=== PATIENT | female | born 1965 | race American Indian/Alaskan Native ===

== ENCOUNTER 2019-08-22 02:29 | Emergency (ER) | payer MEDICARE, MEDICAID ==
[~2019-08-22] VITALS: Ht 162.6 cm; Wt 35.1 kg
[~2019-08-22 02:29] MED LIST: ALB0.5UD INH; ALBU6.7H3 INH; GABA300C PO; HYDR-4353 PO; HYDR12.522 PO; HYDROXYCHLORQUINE PO; NIFE30TA8 PO
[2019-08-22] MEDS ORDERED: NEOM28.37 TOP (02:46)
[2019-08-22] MEDS ORDERED: neomy sulf/bacitrac zn/polymixin b oint 14.2 gm tube TP STA (02:46)
[2019-08-22] MEDS ORDERED: TETanus/Pertussis (Acell)/Diphther VAC/PF (Tdap-Adult) 0.5ml syringe IMVAC ONE (02:50)
[2019-08-22 03:21] VITALS: BP 155/88
== END 2019-08-22 03:25 | disposition home or self-care (01) ==
LOC: ER 02:30
DX: T23.232A Burn of second degree of multiple left fingers (nail), not including thumb, initial encounter (principal); I10 Essential (primary) hypertension; J45.909 Unspecified asthma, uncomplicated; M06.9 Rheumatoid arthritis, unspecified; F17.200 Nicotine dependence, unspecified, uncomplicated; Z90.49 Acquired absence of other specified parts of digestive tract; Z90.710 Acquired absence of both cervix and uterus; Z98.890 Other specified postprocedural states; Z88.1 Allergy status to other antibiotic agents; Z88.0 Allergy status to penicillin; Z88.6 Allergy status to analgesic agent; Z79.2 Long term (current) use of antibiotics; Z79.899 Other long term (current) drug therapy; X10.2XXA Contact with fats and cooking oils, initial encounter; Y93.89 Activity, other specified; Y92.89 Other specified places as the place of occurrence of the external cause; Y99.8 Other external cause status
CPT/HCPCS: 90471; 90715; 99282; 99283

== ENCOUNTER 2022-02-04 14:53 | Emergency (ER) | payer MEDICARE, MEDICAID ==
[~2022-02-04] VITALS: Ht 162.6 cm; Wt 79.5 kg
[~2022-02-04 14:53] MED LIST changes: +NEOM28.37 TOP
[2022-02-04 15:17] VITALS: BP 124/86
[2022-02-04 21:15] LABS: CLARITY,URINE CLEAR (Clear); GLUCOSE, URINE NEGATIVE (Neg); KETONES,URINE NEGATIVE (Neg); LEUKOCYTE ESTERASE ,URINE NEGATIVE (Neg); NITRITES, URINE NEGATIVE (Neg); OCCULT BLOOD,URINE NEGATIVE (Neg); PH,URINE 5.5 (4.8-8.0); PROTEIN,URINE NEGATIVE (Neg); UROBILINOGEN,URINE 0.2 E.U/dL (0.2-1.0)
[2022-02-04 21:16] LABS: COLOR,URINE Straw (Yellow); UA COLLECTION TYPE CLN CATCH MIDSTREAM
[2022-02-08] MEDS ORDERED: PANT20TA18 (10:44)
[2022-02-08] MEDS ORDERED: MIRA50TA PO (10:44)
[2022-02-08] MEDS ORDERED: TIZA4CAP PO (10:44)
[2022-02-08] MEDS ORDERED: SENN-137 PO (10:44)
[2022-02-08] MEDS ORDERED: ATOR10TA70 PO (10:44)
[2022-02-08] MEDS ORDERED: CHOL500049 PO (10:44)
[2022-02-08] MEDS ORDERED: DIAZ5TAB22 PO (10:44)
[2022-02-08] MEDS ORDERED: ASPI-1265 PO (10:44)
[2022-02-08] MEDS ORDERED: MORP60TA77 PO (10:44)
[2022-02-08] MEDS ORDERED: PRED5TAB PO (10:44)
[2022-02-08] MEDS ORDERED: DIME240C2 PO (10:44)
[2022-02-08] MEDS ORDERED: DULO30CA52 PO (10:44)
== END 2022-02-04 21:23 | disposition left against medical advice (07) ==
LOC: ER 14:54
DX: M25.551 Pain in right hip (principal); M79.641 Pain in right hand; I10 Essential (primary) hypertension; J45.909 Unspecified asthma, uncomplicated; M06.9 Rheumatoid arthritis, unspecified; G35 Multiple sclerosis; Z90.49 Acquired absence of other specified parts of digestive tract; Z90.710 Acquired absence of both cervix and uterus; Z88.1 Allergy status to other antibiotic agents; Z88.0 Allergy status to penicillin; Z87.11 Personal history of peptic ulcer disease; Z88.8 Allergy status to other drugs, medicaments and biological substances; Z79.899 Other long term (current) drug therapy; Z79.2 Long term (current) use of antibiotics
CPT/HCPCS: 73521; 81003; 99284

== ENCOUNTER 2022-02-15 06:13 | Day surgery (SDC) | payer MEDICARE, MEDICAID ==
[2022-02-08 11:25] LABS: EOSINOPHILS # (AUTO) 0.1 X10'3 (0-0.9); EOSINOPHILS % (AUTO) 2.7 % (0-6); LYMPHOCYTES # (AUTO) 1.2 X10'3 (1.1-4.8); LYMPHOCYTES % (AUTO) 27.5 % (21-51); MEAN CORPUSCULAR HEMOGLOBIN 29.4 PG (27.0-31.0); MEAN CORPUSCULAR HGB CONC 32.5 g/dL (33.0-36.5); MEAN CORPUSCULAR VOLUME 90.4 FL (78-98); MEAN PLATELET VOLUME 7.9 FL (7.4-10.4); MONOCYTES # (AUTO) 0.5 X10'3 (0-0.9); MONOCYTES % (AUTO) 10.3 % (2-12); NEUTROPHILS # (AUTO) 2.6 X10'3 (1.8-7.7); NEUTROPHILS % (AUTO) 58.5 % (42-75); PRE OP HEMATOCRIT 37.3 % (35.0-45.0); PRE OP HEMOGLOBIN 12.1 g/dL (12.0-16.0); PRE OP PLATELET COUNT 180 X10'3 (140-440); RED BLOOD COUNT 4.12 X10'6 (4.20-5.60); RED CELL DISTRIBUTION WIDTH 14.2 % (11.5-14.5)
[2022-02-08 11:37] LABS: PRE OP PROTIME 9.9 SECONDS (9.0-12.0)
[2022-02-08 11:48] LABS: ALBUMIN 3.7 G/DL (3.4-5.0); ALBUMIN/GLOBULIN RATIO 0.8 (1.1-1.5); ALKALINE PHOSPHATASE 86 IU/L (46-116); BLOOD UREA NITROGEN 15 MG/DL (7-18); BUN/CREATININE RATIO 20.5 (6.6-38.0); CALCIUM 8.5 MG/DL (8.5-10.1); CHLORIDE 107 MMOL/L (99-107); CREATININE 0.73 MG/DL (0.40-0.90); PRE OP ALT 31 U/L (30-65); PRE OP ANION GAP 7 (8-16); PRE OP AST 13 U/L (10-37); PRE OP BILIRUB, TOTAL 0.2 MG/DL (0.0-1.0); PRE OP GLUCOSE 89 MG/DL (70-104); PRE OP SODIUM 141 MMOL/L (135-145); TOTAL CARBON DIOXIDE 26.7 MMOL/L (24-32); TOTAL PROTEIN 8.2 G/DL (6.4-8.2); eGFR 83 ML/MIN
[2022-02-15] VITALS (11 sets, daily range): BP systolic 121–169; BP diastolic 63–98
[~2022-02-15] VITALS: Ht 162.6 cm; Wt 76.9 kg
[~2022-02-15 06:13] MED LIST changes: -ALB0.5UD INH; -ALBU6.7H3 INH; +ASPI-1265 PO; +ATOR10TA70 PO; +CHOL500049 PO; +DIAZ5TAB22 PO; +DIME240C2 PO; +DULO30CA52 PO; -HYDR12.522 PO; +MIRA50TA PO; +MORP60TA77 PO; -NEOM28.37 TOP; -NIFE30TA8 PO; +PANT20TA18; +PRED5TAB PO; +SENN-137 PO; +TIZA4CAP PO; +albuterol 2.5 MG/3 ML nebule NEB PRN; +diazepam 5mg tablet PO ONE; +famotidine 20mg tablet PO ONE; +ringers solution, lacted 1,000 ML IV SCH
[2022-02-15] MEDS ORDERED: cocaine 4% topical solution 4ml bottle ONE (06:35)
[2022-02-15] MEDS ORDERED: LIDOcaine 1% W/epiNEPHrine 1:100,000 20ml vial ONE (06:35)
[2022-02-15] MEDS ORDERED: bacitracin 15gm ointment TP ONE (06:35)
[2022-02-15] MEDS ORDERED: oxymetazoline 15 ML nasal spray NS ONE (06:36)
[2022-02-15] MEDS: oxymetazoline 15 ML nasal spray NS PRN ×2 (06:54→10:09)
[2022-02-15] MEDS ORDERED: fentaNYL/PF 50MCG/1 ML 2ML syringe ONE (07:58)
[2022-02-15] MEDS ORDERED: midazolam 1 mg/ML 2ml injection ONE (07:59)
[2022-02-15] MEDS ORDERED: ipratropium/albuterol 3ml nebule IH ONE (08:00)
[2022-02-15] MEDS ORDERED: sevoflurane 250ml liquid IH ONE (08:20)
[2022-02-15] MEDS ORDERED: glycopyrrolate 0.2mg/ml inj ONE (08:20)
[2022-02-15] MEDS ORDERED: ePHEDrine 50MG/ML INJ. ONE (08:20)
[2022-02-15] MEDS ORDERED: mupirocin 2% ointment 22GM ONE ×2 (08:21→08:29)
[2022-02-15] MEDS ORDERED: hydrocortisone sod succ/PF 100mg/2ml inj. ONE (08:52)
[2022-02-15] MEDS ORDERED: LIDOcaine 2% (20mg/ml) 5ml vial ONE (08:52)
[2022-02-15] MEDS ORDERED: propofol inj 20 ML IV ONE (08:52)
[2022-02-15] MEDS ORDERED: ondansetron/PF 4mg/2ml inj ONE (08:52)
[2022-02-15] MEDS ORDERED: dexamethasone sod phosphate 4mg/ml inj. ONE (08:52)
[2022-02-15] MEDS ORDERED: cocaine 4% topical solution 4ml bottle TP ONE (09:00)
[2022-02-15] MEDS ORDERED: LIDOcaine 1% W/epiNEPHrine 1:100,000 20ml vial IJ ONE (09:00)
[2022-02-15] MEDS ORDERED: mupirocin 2% nasal ointment 1gm UD NS ONE (09:00)
[2022-02-15] MEDS ORDERED: tranexamic acid 100mg/ml inj. ONE (09:13)
[2022-02-15] MEDS ORDERED: meperidine/PF 25mg/ml syringe ONE (09:25)
--- NOTE | 2022-02-15 09:26 | NUR ---
Received from OR via [facility], accompanied by Anesthesiologist and report given by WHITNEY Anesthesiologist. PATIENT WAKING UP, DENIES PAIN, VSS, 20G PIV TO RIGHT FOREARM, BILATERAL COTTONOID DRESSING C/D/I. Addendum: 02/15/22 at 0949 by Roosevelt Morgan RN Amended: Links added.
[2022-02-15] MEDS ORDERED: meperidine/PF 25mg/ml syringe IV PRN ×3 (09:35)
[2022-02-15] MEDS ORDERED: proCHLORperazine 10 MG/2 ml inj IV PRN (09:35)
[2022-02-15] MEDS ORDERED: ondansetron/PF 4mg/2ml inj IV PRN (09:35)
[2022-02-15] MEDS ORDERED: ringers solution, lacted 1,000 ML IV SCH (09:35)
[2022-02-15] MEDS: morphine 4 MG/ML inj SYRINge IV PRN ×2 (09:53→10:18)
[2022-02-15] MEDS ORDERED: salt irrigation nasal spray 45 ML SPRAY NS PRN (09:55)
[2022-02-15] MEDS: morphine 2 MG/ML inj. syringe IV PRN ×2 (10:06→10:43)
--- NOTE | 2022-02-15 10:56 | NUR ---
ALL DISCHARGE CRITERIA HAS BEEN MET. VSS, PAIN AT A TOLERABLE LEVEL, VOIDING AND ABLE TO SAFELY AMBULATE AND TRANSFER SELF. IV TAKEN OUT WITHOUT ANY COMPLICATIONS. ALL DISCHARGE INSTRUCTIONS COVERED WITH PATIENT AND ALL QUESTIONS ANSWERED. PATIENT TAKEN OUT VIA WHEELCHAIR WITH ALL BELONGINGS TO PERSONAL VEHICLE WHERE FAMILY DROVE PATIENT HOME. Addendum: 02/15/22 at 1112 by Roosevelt Morgan RN Amended: Links added.
== END 2022-02-15 10:56 | disposition home or self-care (01) ==
LOC: PAS 06:13
PROVIDERS: ATTEND Otolaryngology
DX: J32.9 Chronic sinusitis, unspecified (principal); J34.3 Hypertrophy of nasal turbinates; K21.9 Gastro-esophageal reflux disease without esophagitis; F17.210 Nicotine dependence, cigarettes, uncomplicated; Z79.01 Long term (current) use of anticoagulants; Z79.899 Other long term (current) drug therapy; Z98.890 Other specified postprocedural states
CPT/HCPCS: 30140; 31254; 31299; 36415; 61782; 80053; 82948; 85025; 85576; 85610; 85730; 87635; 88341; 88342; 94640; 94760; A6402; C9250; C9803; J1100; J1720; J2175; J2250; J2270; J2405; J2704; J3010; J3490; J7030; J7040; J7120; U0003; U0005; Z7506; Z7508; Z7512; 88173; 88305; A4618; A6449; A7000

== ENCOUNTER 2022-12-27 06:06 | Day surgery (SDC) | payer MEDICARE, MEDICAID ==
[2022-12-27] VITALS (10 sets, daily range): BP systolic 106–172; BP diastolic 68–87
[~2022-12-27] VITALS: Ht 162.6 cm; Wt 78.9 kg
[~2022-12-27 06:06] MED LIST changes: -CHOL500049 PO; -albuterol 2.5 MG/3 ML nebule NEB PRN; -diazepam 5mg tablet PO ONE; +methylPREDNISolone sod succ/PF 40mg inj. IV ONE; +tranexamic acid inj. 1,000 MG in normal saline IV soln 100ML IV ONE
[2022-12-27] MEDS ORDERED: cocaine 4% topical solution 4ml bottle ONE (06:41)
[2022-12-27] MEDS ORDERED: methylPREDNISolone acetate 80mg/ml inj**IM only ONE (06:41)
[2022-12-27] MEDS ORDERED: mupirocin 2% ointment 22GM ONE (06:42)
[2022-12-27] MEDS ORDERED: LIDOcaine 1% W/epiNEPHrine 1:100,000 20ml vial ONE (06:42)
[2022-12-27] MEDS ORDERED: oxymetazoline 15 ML nasal spray NS ONE (06:42)
[2022-12-27] MEDS: oxymetazoline 15 ML nasal spray NS ONE ×2 (07:28→08:34)
[2022-12-27] MEDS ORDERED: fentaNYL/PF 50MCG/1 ML 2ML syringe ONE (07:48)
[2022-12-27] MEDS ORDERED: midazolam 1 mg/ML 2ml injection ONE (07:49)
[2022-12-27] MEDS ORDERED: dexamethasone sod phosphate 4mg/ml inj. ONE (07:50)
[2022-12-27] MEDS ORDERED: rocuronium 10mg/ml inj IV ONE (07:50)
[2022-12-27] MEDS ORDERED: propofol inj 20 ML IV ONE (07:50)
[2022-12-27] MEDS ORDERED: ondansetron/PF 4mg/2ml inj ONE (07:50)
[2022-12-27] MEDS ORDERED: LIDOcaine 2% (20mg/ml) 5ml vial ONE (07:50)
[2022-12-27] MEDS ORDERED: labetalol 20mg/4ml (5mg/ml) syringe IV PRN (07:55)
[2022-12-27] MEDS ORDERED: morphine 2 MG/ML inj. syringe IV PRN (07:55)
[2022-12-27] MEDS ORDERED: hydrALAZINE 20mg/ml inj. IV PRN (07:55)
[2022-12-27] MEDS ORDERED: fentaNYL/PF 50MCG/1 ML 2ML syringe IV PRN ×2 (07:55)
[2022-12-27] MEDS ORDERED: ondansetron/PF 4mg/2ml inj IV PRN (07:55)
[2022-12-27] MEDS ORDERED: ringers solution, lacted 1,000 ML IV SCH (07:55)
[2022-12-27] MEDS ORDERED: sevoflurane 250ml liquid IH ONE (08:00)
[2022-12-27] MEDS ORDERED: tranexamic acid 100mg/ml inj. ONE (08:25)
[2022-12-27] MEDS ORDERED: epiNEPHrine 1 mg/ml 30ml MDV ONE (08:25)
[2022-12-27] MEDS ORDERED: ePHEDrine 50MG/ML INJ. ONE (08:42)
--- NOTE | 2022-12-27 09:20 | NUR ---
PT ARRIVED TO [facility]IA [facility] ACCOMPANIED BY DR. SIMMONS-ANESTHESIA REPORT GIVEN, WAKING UP, VSS, DENIES PAIN, COTTONOID TO LEFT NARE-NO BLEEDING NOTED, NEURO INTACT.
[2022-12-27] MEDS: morphine 4 MG/ML inj SYRINge IV PRN ×2 (09:27→10:09)
[2022-12-27] MEDS ORDERED: acetaminophen 1,000mg/100ml IV 100 ML IV ONE (09:35)
[2022-12-27] MEDS ORDERED: salt irrigation nasal spray 45 ML SPRAY NS PRN (09:35)
--- NOTE | 2022-12-27 10:30 | NUR ---
PT UP AND GETTING DRESSED, COTTONOID REMOVED PRIOR-NO BLEEDING NOTED, PAINFUL HEAD AND THROAT-PAIN MEDS GIVEN, PT HAS CHRONIC PAIN AND TAKES MORPHINE/NORCO AT HOME REGULARLY, VSS, ASKED FGOR MORE PAIN MEDS BEFORE DISCHARGE-GAVE IV FENTANYL AND EXPLAINED NEED TO WAIT AND THAT SOME PAIN IS EXPECTED. PT VERBALIZED UNDERSTANDING.
--- NOTE | 2022-12-27 11:00 | NUR ---
PT UP AND DRESSED, DOING WELL, VSS, PAIN MANAGEABLE - HAS PAIN MEDS AT HOME ALREADY, NO BLEEDING FROM NARES, PIV-D/CD, D/C INSTRUCTIONS DISCUSSED WITH PT-ALL QUESTIONS ANSWERED, TAKEN WITH ALL BELONGINGS TO VEHICLE FOR TRANSPORT HOME.
== END 2022-12-27 11:00 | disposition home or self-care (01) ==
LOC: PAS 06:06
PROVIDERS: ATTEND Otolaryngology
DX: J32.8 Other chronic sinusitis (principal); J33.8 Other polyp of sinus; J34.3 Hypertrophy of nasal turbinates; J44.9 Chronic obstructive pulmonary disease, unspecified; K21.9 Gastro-esophageal reflux disease without esophagitis; M35.00 Sjogren syndrome, unspecified; F32.A Depression, unspecified; F41.9 Anxiety disorder, unspecified; I10 Essential (primary) hypertension; D64.9 Anemia, unspecified; G35 Multiple sclerosis; Z88.0 Allergy status to penicillin; Z20.822 Contact with and (suspected) exposure to COVID-19; Z79.899 Other long term (current) drug therapy; Z88.1 Allergy status to other antibiotic agents; Z88.8 Allergy status to other drugs, medicaments and biological substances; Z96.643 Presence of artificial hip joint, bilateral; Z98.890 Other specified postprocedural states; Z85.41 Personal history of malignant neoplasm of cervix uteri; Z90.49 Acquired absence of other specified parts of digestive tract; Z90.710 Acquired absence of both cervix and uterus; F17.210 Nicotine dependence, cigarettes, uncomplicated; Z86.73 Personal history of transient ischemic attack (TIA), and cerebral infarction without residual deficits
CPT/HCPCS: 30140; 31255; 31267; 61782; 82948; 87811; 93005; A6402; J0131; J1100; J2250; J2270; J2405; J2704; J2920; J3010; J3490; J7030; J7050; J7120; Z7506; Z7508; Z7512; A4618; A6449; A7000; J0171; J1040

== ENCOUNTER 2023-10-17 10:11 | Emergency (ER) | payer MEDICARE, MEDICAID ==
[~2023-10-17] VITALS: Ht 162.6 cm; Wt 81.8 kg
[~2023-10-17 10:11] MED LIST changes: +CYCL-1 PO; -famotidine 20mg tablet PO ONE; -methylPREDNISolone sod succ/PF 40mg inj. IV ONE; -ringers solution, lacted 1,000 ML IV SCH; -tranexamic acid inj. 1,000 MG in normal saline IV soln 100ML IV ONE
[2023-10-17 10:15] VITALS: TEMP 100
[2023-10-17 11:22] LABS: BILIRUBIN,URINE NEGATIVE (Neg); CLARITY,URINE CLOUDY (Clear); COLOR,URINE YELLOW (Yellow); GLUCOSE, URINE NEGATIVE (Neg); KETONES,URINE NEGATIVE (Neg); LEUKOCYTE ESTERASE ,URINE MODERATE (Neg); NITRITES, URINE POSITIVE (Neg); OCCULT BLOOD,URINE SMALL (Neg); PROTEIN,URINE NEGATIVE (Neg); UROBILINOGEN,URINE 0.2 E.U/dL (0.2-1.0)
[2023-10-17 11:27] LABS: UA COLLECTION TYPE NON-SPECIFIED
[2023-10-17 11:28] LABS: SQUAMOUS EPITHELIAL CELL,UR FEW /LPF (FEW); WBC,URINE TNTC /HPF (0-4)
[2023-10-17 11:29] LABS: BACTERIA,URINE 4+ /HPF (Neg); RBC,URINE 0-2 /HPF (0-2)
[2023-10-17 11:30] VITALS: BP 154/72; PULSE 68; O2SAT 99
[2023-10-17] MEDS: oxyCODONE IR 5mg (immed. release) tablet PO ONE (11:42)
[2023-10-17 11:51] VITALS: RESP 16
[2023-10-17] MEDS: ketorolac trometh. 30mg/ml inj. IM STA (11:51)
[2023-10-17 11:53] LABS: APTT 26 SECONDS (22-32); PROTHROMBIN TIME 10.8 SECONDS (9.0-12.0)
[2023-10-17 11:55] LABS: ALANINE AMINOTRANSFERASE 31 U/L (12-78); ALBUMIN 3.2 G/DL (3.4-5.0); ALBUMIN/GLOBULIN RATIO 0.7 (1.1-1.5); ALKALINE PHOSPHATASE 137 IU/L (46-116); ANION GAP 10 (8-16); ASPARTATE AMINO TRANSFERASE 22 U/L (10-37); BILIRUBIN,TOTAL 0.5 MG/DL (0.1-1.0); BLOOD UREA NITROGEN 16 MG/DL (7-18); CALCIUM 8.6 MG/DL (8.5-10.1); CHLORIDE 107 MMOL/L (99-107); CREATININE 0.89 MG/DL (0.40-0.90); GLUCOSE 124 MG/DL (70-104); POTASSIUM 3.5 MMOL/L (3.5-5.1); SODIUM 140 MMOL/L (135-145); TOTAL CARBON DIOXIDE 22.7 MMOL/L (24-32); TOTAL PROTEIN 7.9 G/DL (6.4-8.2); eCRCL 61 ML/MIN; eGFR 66 ML/MIN
[2023-10-17] MEDS: dexamethasone sod phosphate 10mg/ml inj PO STA (12:21)
[2023-10-17] MEDS ORDERED: OXYC-658 PO (12:31)
[2023-10-17] MEDS ORDERED: SULF1TAB49 PO (12:31)
[2023-10-17 12:56] LABS: BASOPHILS % (AUTO) 0.5 % (0-1); EOSINOPHILS % (AUTO) 0.1 % (0-6); HEMATOCRIT 34.3 % (35.0-45.0); HEMOGLOBIN 11.3 g/dl (12.0-16.0); LYMPHOCYTES # (AUTO) 0.9 X10'3 (1.1-4.8); LYMPHOCYTES % (AUTO) 11.7 % (21-51); MEAN CORPUSCULAR HGB CONC 33.1 g/dL (33.0-36.5); MEAN CORPUSCULAR VOLUME 87.7 FL (78-98); MONOCYTES # (AUTO) 0.7 X10'3 (0-0.9); MONOCYTES % (AUTO) 9.6 % (2-12); NEUTROPHILS # (AUTO) 5.7 X10'3 (1.8-7.7); NEUTROPHILS % (AUTO) 78.1 % (42-75); PLATELET COUNT 129 X10'3 (140-440); RED BLOOD COUNT 3.91 X10'6 (4.20-5.60); RED CELL DISTRIBUTION WIDTH 14.6 % (11.5-14.5); WHITE BLOOD COUNT 7.4 X10'3 (4.5-11.0)
== END 2023-10-17 12:44 | disposition home or self-care (01) ==
LOC: ER 10:11
DX: N39.0 Urinary tract infection, site not specified (principal); N12 Tubulo-interstitial nephritis, not specified as acute or chronic; Z88.1 Allergy status to other antibiotic agents; Z88.0 Allergy status to penicillin; Z88.8 Allergy status to other drugs, medicaments and biological substances; I10 Essential (primary) hypertension; J45.909 Unspecified asthma, uncomplicated; M06.9 Rheumatoid arthritis, unspecified; Z90.49 Acquired absence of other specified parts of digestive tract; Z90.710 Acquired absence of both cervix and uterus; Z95.0 Presence of cardiac pacemaker
CPT/HCPCS: 36415; 74176; 80053; 81001; 83605; 84145; 85025; 85610; 85730; 87040; 87088; 87186; 96372; 99285; J1100; J1885; 87077

== ENCOUNTER 2023-10-21 10:39 | Emergency (ER) | payer MEDICARE, MEDICAID ==
[~2023-10-21] VITALS: Ht 162.6 cm; Wt 80.2 kg
[~2023-10-21 10:39] MED LIST changes: +SULF1TAB49 PO
[2023-10-21 11:33] LABS: BILIRUBIN,URINE NEGATIVE (Neg); CLARITY,URINE CLOUDY (Clear); COLOR,URINE YELLOW (Yellow); GLUCOSE, URINE NEGATIVE (Neg); KETONES,URINE NEGATIVE (Neg); LEUKOCYTE ESTERASE ,URINE SMALL (Neg); NITRITES, URINE NEGATIVE (Neg); OCCULT BLOOD,URINE TRACE-INTACT (Neg); PROTEIN,URINE NEGATIVE (Neg); UROBILINOGEN,URINE 0.2 E.U/dL (0.2-1.0)
[2023-10-21 11:38] LABS: UA COLLECTION TYPE CLN CATCH MIDSTREAM
[2023-10-21 11:40] LABS: BACTERIA,URINE 4+ /HPF (Neg); MUCUS STRANDS NONE SEEN /LPF (Neg); RBC,URINE 0-2 /HPF (0-2); SQUAMOUS EPITHELIAL CELL,UR MODERATE /LPF (FEW); WBC CLUMPS,URINE MANY /HPF (NEGATIVE); WBC,URINE TNTC /HPF (0-4)
[2023-10-21] MEDS: ketorolac tromethamine 15mg/ml inj. IV ONE (12:11)
[2023-10-21] MEDS: normal saline 1000ml 1,000 ML IV ONE (12:11)
[2023-10-21] MEDS: CefTRIAXone 2gm/D5W 50ml BAG 50 ML IV ONE (12:30)
[2023-10-21] MEDS ORDERED: CEFU250T95 PO (13:39)
[2023-10-21 13:47] VITALS: BP 136/68; PULSE 82; RESP 18; TEMP 97.8; O2SAT 97
== END 2023-10-21 14:04 | disposition home or self-care (01) ==
LOC: ER 10:39
DX: N12 Tubulo-interstitial nephritis, not specified as acute or chronic (principal); Z88.0 Allergy status to penicillin; Z88.8 Allergy status to other drugs, medicaments and biological substances; I10 Essential (primary) hypertension; J45.909 Unspecified asthma, uncomplicated; Z90.49 Acquired absence of other specified parts of digestive tract; Z90.710 Acquired absence of both cervix and uterus; F17.210 Nicotine dependence, cigarettes, uncomplicated; Z95.0 Presence of cardiac pacemaker
CPT/HCPCS: 81001; 87077; 87088; 87186; 96365; 96366; 96375; 99284; J0696; J1885; J7030

== ENCOUNTER 2025-06-11 12:56 | Outpatient (CLI) | payer MEDICARE, MEDICAID ==
[~2025-06-11 12:56] MED LIST changes: +CEFU250T95 PO; +MORP60TA3 PO; -MORP60TA77 PO; -SENN-137 PO; -SULF1TAB49 PO; +[UNRECOGNIZED DRUG - CODE] PO
--- NOTE | 2025-06-11 13:37 | RADIOLOGY REPORT ---
CHEST RADIOGRAPH INDICATION: MULTIPLE SCLEROSIS, PARESTHESIA TECHNIQUE: Frontal and lateral view of the chest was obtained COMPARISON: CT CT CHEST on DOS: 10/05/23, DI CHEST,TWO VIEWS on DOS: 10/05/23 FINDINGS: Lines and Tubes: Left chest wall pacemaker Lungs: Clear Pleura: No effusion. No pneumothorax. Cardiomediastinal contours: Unremarkable Bones: Unremarkable IMPRESSION: No evidence of acute disease.
== END 2025-06-11 23:59 | disposition home or self-care (01) ==
LOC: RAD 12:56
PROVIDERS: ATTEND Nurse Practitioner Family
DX: G35.D Multiple sclerosis, unspecified (principal); R20.2 Paresthesia of skin; Z95.0 Presence of cardiac pacemaker
CPT/HCPCS: 71046